=== PATIENT | male | born 1995 | race African-American/Black ===

== ENCOUNTER 2018-12-15 17:24 | Emergency (ER) | payer BC ==
[~2018-12-15] VITALS: Ht 172.7 cm; Wt 83.9 kg
[2018-12-15 18:50] VITALS: BP 133/81
[2018-12-15] MEDS ORDERED: CYCL10TA2 PO (19:22)
[2018-12-15] MEDS ORDERED: NAPR-514 PO (19:22)
--- NOTE | 2018-12-15 19:22 | PHYS DOC ---
Past Medical History Past Medical History: No Pertinent History (JOHN FERRERA APRN) Past Surgical History: No Surgical History (JOHN FERRERA APRN) Alcohol Use: Occasionally Drug Use: None (JOHN FERRERA APRN) Adult General Chief Complaint Chief Complaint: BACK PAIN - NO INJURY HPI HPI Patient is a 23 year old male with no significant medical history who presents to the ED today complaining of mild left mid back pain since yesterday, patient denies any known injury. He states he missed work yesterday and would like a note to excuse him for yesterday and today. 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 He describes the pain as throbbing and intermittent on the also take movements. Denies any hematuria. (JOHN FERRERA APRN) Review of Systems Review of Systems Constitutional: Denies fever or chills [] Eyes: Denies change in visual acuity, redness, or eye pain [] HENT: Denies nasal congestion or sore throat [] Respiratory: Denies cough or shortness of breath [] Cardiovascular: No additional information not addressed in HPI [] GI: Denies abdominal pain, nausea, vomiting, bloody stools or diarrhea [] : Denies dysuria or hematuria [] Musculoskeletal: Reports mid back pain left side Integument: Denies rash or skin lesions [] Neurologic: Denies headache, focal weakness or sensory changes [] All other systems were reviewed and found to be within normal limits, except as documented in this note. (JOHN FERRERA APRN) Allergies Allergies Allergies Coded Allergies Type Severity Reaction Last Updated Verified No Known Drug Allergies 12/15/18 No (LATONYA KUO MD) Physical Exam Physical Exam Constitutional: Well developed, well nourished, no acute distress, non-toxic appearance. [] HENT: Normocephalic, atraumatic, bilateral external ears normal, oropharynx moist, no oral exudates, nose normal. [] Eyes: PERRLA, EOMI, conjunctiva normal, no discharge. [] Neck: Normal range of motion, no tenderness, supple, no stridor. [] Cardiovascular:Heart rate regular rhythm, no murmur [] Lungs & Thorax: Bilateral breath sounds clear to auscultation [] Abdomen: Bowel sounds normal, soft, no tenderness, no masses, no pulsatile masses. [] Skin: Warm, dry, no erythema, no rash. [] Back: No tenderness, no CVA tenderness. [] Extremities: No tenderness, no cyanosis, no clubbing, ROM intact, no edema. [] Neurologic: Alert and oriented X 3, normal motor function, normal sensory function, no focal deficits noted. [] Psychologic: Affect normal, judgement normal, mood normal. [] (JOHN FERRERA APRN) Current Patient Data Vital Signs Vital Signs Date Time Temp Pulse Resp B/P (MAP) Pulse Ox O2 Delivery O2 Flow Rate FiO2 12/15/18 18:50 97.8 61 19 133/81 (98) 99 Room Air 97.8 (LATONYA KUO MD) EKG EKG [] (JOHN FERRERA APRN) Radiology/Procedures Radiology/Procedures [] (JOHN FERRERA APRN) Course & Med Decision Making Course & Med Decision Making Pertinent Labs and Imaging studies reviewed. (See chart for details) This is a 23-year-old male patient presented to the ED today with musculoskeletal pain to the left thoracic spine from heavy lifting at work. No known injury. He is requesting a note for work. Note was provided. Follow-up with PCP. (JOHN FERRERA APRN) Course & Med Decision Making Staff Physician Addendum: I was working in the ER during the course of this patient's visit. I was available for consultation as needed, but I was not directly involved in the care of this patient. (LATONYA KUO MD) Dragon Disclaimer Dragon Disclaimer This electronic medical record was generated, in whole or in part, using a voice recognition dictation system. (JOHN FERRERA APRN) Departure Departure Impression: Primary Impression: Thoracic back sprain Disposition: 01 HOME, SELF-CARE Condition: STABLE Referrals: NO PCP (PCP) Follow-up with your own doctor in 1-2 weeks Patient Instructions: Thoracic Strain, Vtsc-le-Gtol Additional Instructions: You were evaluated in the emergency room for mid back pain which sounds like a muscle strain. Apply heat to the affected area. Take the prescribed medications as needed for pain. Follow-up with your doctor in 1-2 weeks. Scripts Naproxen (NAPROXEN) 500 Mg Tablet 1 TAB PO BID, #60 TAB Prov: JOHN FERRERA APRN 12/15/18 Cyclobenzaprine Hcl (CYCLOBENZAPRINE HCL) 10 Mg Tablet 1 TAB PO TID, #30 TAB Prov: JOHN FERRERA APRN 12/15/18 Problem Qualifiers Primary Impression: Thoracic back sprain Encounter type: initial encounter Qualified Codes: S23.9XXA - Sprain of unspecified parts of thorax, initial encounter JOHN FERRERA APRN Dec 15, 2018 19:22 LATONYA KUO MD Dec 15, 2018 21:48
== END 2018-12-15 19:25 | disposition home or self-care (01) ==
LOC: ER 17:24
DX: S23.3XXA Sprain of ligaments of thoracic spine, initial encounter (principal); X50.0XXA Overexertion from strenuous movement or load, initial encounter; Y93.89 Activity, other specified; Y92.59 Other trade areas as the place of occurrence of the external cause; Y99.0 Civilian activity done for income or pay
CPT/HCPCS: 99283